=== PATIENT | female | born 1970 | race Caucasian/White ===

== ENCOUNTER 2019-07-19 16:01 | Emergency (ER) | payer OTHER ==
[~2019-07-19] VITALS: Ht 170.2 cm; Wt 79.0 kg
[2019-07-19] MEDS ORDERED: LISI5TAB7 PO (16:07)
[2019-07-19] MEDS ORDERED: ALBU18HF INH (16:08)
[2019-07-19] MEDS ORDERED: ESCI5TAB7 PO (16:08)
[2019-07-19] MEDS ORDERED: methylPREDNISolone SOD SUCC 125 MG/2 ML IV ONE (16:30)
[2019-07-19] MEDS ORDERED: SODIUM CHLORIDE 0.9% 1,000ML IVBOLUS ONE (16:30)
[2019-07-19] MEDS ORDERED: SODIUM CHLORIDE FLUSH 10ML SYR IVF ONE (16:30)
--- NOTE | 2019-07-19 16:36 | NUR ---
THIS IS A 49 YO FEMALE COMING IN FOR SHORTNESS OF BREATH, COUGH, FEVERS AT HOME X2 DAYS. PATIENT STATES SHE HAD FEVER AT HOME AT 89F, MEDICATED WITH 650MG TYLENOL, TEMP 99.1 HERE. HX OF ASTHMA MEDICATED WITH HOME NEBULIZER MULTIPLE TIMES WITH NO RELIEF. LABORED BREATHING NOTICED, TACHYPNIC AT 26 BREATHS A MINUTE, LUNG SOUNDS HAVE INSPIRATORY AND EXPIRATORY WHEEZES THROUGHOUT. PATIENT IS DIAPHORETIC. 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 LOLY RAI TO ROOM TO COMPLETE SWABS. PIV PLACED, LABS DRAWN, IVF STARTED. ALL MONITORING IN PLACE, SINUS TACHYCARDIA PRESENT. SPO2 AT 98% ON RA. CALL LIGHT IN REACH
[2019-07-19 16:46] LABS: BASOPHILS # (AUTO) 0.03 x10^3/uL (0-0.1); BASOPHILS % (AUTO) 1 % (0-1); EOSINOPHILS # (AUTO) 0.21 x10^3/uL (0-0.4); EOSINOPHILS % (AUTO) 4 % (1-7); LYMPHOCYTES # (AUTO) 1.55 x10^3/uL (1-3.4); LYMPHOCYTES % (AUTO) 29 % (22-44); MD NO; MEAN CORPUSCULAR HEMOGLOBIN 32.6 pg (27.0-34.8); MEAN CORPUSCULAR HGB CONC 34.2 g/dL (32.4-35.8); MEAN CORPUSCULAR VOLUME 95.4 fL (80-100); MEAN PLATELET VOLUME 9.6 fL (7.4-10.4); MONOCYTES # (AUTO) 0.62 x10^3/uL (0.2-0.8); MONOCYTES % (AUTO) 12 % (2-9); NEUTROPHILS # (AUTO) 3.01 x10^3/uL (1.8-6.8); NEUTROPHILS % (AUTO) 56 % (42-75); PLATELET COUNT 150 x10^3/uL (130-400); RED BLOOD COUNT 4.67 x10^6/uL (3.82-5.3); RED CELL DISTRIBUTION WIDTH 12.3 % (9.6-15.2)
[2019-07-19 16:48] LABS: RAPID INFLUENZA A Negative (Negative); RAPID INFLUENZA B Negative (Negative)
--- NOTE | 2019-07-19 16:50 | NUR ---
XRAY PENDING. PATIENT UP IN LAUREN WEBER, NAD
[2019-07-19 16:57] LABS: ALBUMIN 3.8 g/dL (3.4-5.0); ANION GAP 8 mmol/L (5-15); CALCIUM 8.9 mg/dL (8.5-10.1); CHLORIDE 108 mmol/L (98-107); CREATININE 0.97 mg/dL (0.55-1.02)
[2019-07-19 17:20] VITALS: BP 134/76
--- NOTE | 2019-07-19 17:43 | NUR ---
Patient given discharge instructions and they have confirmed that they understand the instructions. Patient ambulatory with steady gait out through respiratory exit. Patient verbalized understanding to come back if SPO2 drops below 92%, febrile, and tachycardic. Patient verbalized understanding that COVID19 test results will come back in next 24-48 hours.
== END 2019-07-19 17:46 | disposition home or self-care (01) ==
LOC: ED 16:19
DX: J45.40 Moderate persistent asthma, uncomplicated (principal); Z20.828 Contact with and (suspected) exposure to other viral communicable diseases; J06.9 Acute upper respiratory infection, unspecified; I10 Essential (primary) hypertension
CPT/HCPCS: 36415; 71045; 80048; 82040; 83605; 84145; 85025; 85379; 86140; 87040; 87400; 93005; 99285; J7030

== ENCOUNTER → 2019-11-20 | Outpatient (CLI) | payer OTHER ==
[~2019-11-20] MED LIST: ALBU18HF INH; ESCI5TAB7 PO; LISI5TAB7 PO
== END | disposition home or self-care (01) ==
LOC: CFH 14:15
PROVIDERS: ATTEND Family Medicine
DX: Z12.31 Encounter for screening mammogram for malignant neoplasm of breast (principal); N64.89 Other specified disorders of breast
CPT/HCPCS: 77067

== ENCOUNTER → 2020-03-02 | Outpatient (CLI) | payer OTHER ==
[2020-03-02 07:37] LABS: CHOLESTEROL, TOTAL 282 mg/dL (140-239); TRIGLYCERIDES 705 mg/dL (50-200)
[2020-03-02 07:39] LABS: CHOL/HDL RATIO 6.6; HDL CHOL % 15 % (28-40); HDL CHOLESTEROL (DIRECT) 43 mg/dL (40-60)
== END | disposition home or self-care (01) ==
LOC: LAB 07:11
PROVIDERS: ATTEND Family Medicine
DX: E78.1 Pure hyperglyceridemia (principal); R73.09 Other abnormal glucose
CPT/HCPCS: 36415; 80061; 83036

== ENCOUNTER → 2020-03-19 | Outpatient (CLI) | payer OTHER ==
[2020-03-19 07:30] LABS: BASOPHILS % (AUTO) 1 % (0-1); EOSINOPHILS % (AUTO) 3 % (1-7); LYMPHOCYTES % (AUTO) 39 % (22-44); MEAN CORPUSCULAR HEMOGLOBIN 32.7 pg (27.0-34.8); MEAN CORPUSCULAR HGB CONC 34.6 g/dL (32.4-35.8); MEAN PLATELET VOLUME 9.6 fL (7.4-10.4); MONOCYTES % (AUTO) 7 % (2-9); NEUTROPHILS % (AUTO) 49 % (42-75); PLATELET COUNT 169 x10^3/uL (130-400); RED BLOOD COUNT 4.35 x10^6/uL (3.82-5.3); RED CELL DISTRIBUTION WIDTH 12.1 % (9.6-15.2)
[2020-03-19 07:33] LABS: MD NO
[2020-03-19 07:40] LABS: ALBUMIN 3.9 g/dL (3.4-5.0); ANION GAP 5 mmol/L (5-15); CALCIUM 9.1 mg/dL (8.5-10.1); CHLORIDE 107 mmol/L (98-107)
[2020-03-19 07:53] LABS: ALANINE AMINOTRANSFERASE 29 U/L (12-78); ALKALINE PHOSPHATASE 88 U/L (45-117); BILIRUBIN,TOTAL 0.5 mg/dL (0.2-1.0); CREATININE 0.96 mg/dL (0.55-1.02); TOTAL PROTEIN 7.8 g/dL (6.4-8.2)
== END | disposition home or self-care (01) ==
LOC: LAB 07:03
PROVIDERS: ATTEND Family Medicine
DX: Z00.00 Encounter for general adult medical examination without abnormal findings (principal); E55.9 Vitamin D deficiency, unspecified; E78.2 Mixed hyperlipidemia
CPT/HCPCS: 36415; 80053; 80061; 82172; 82306; 83695; 84443; 85025

== ENCOUNTER 2021-01-11 20:46 | Emergency (ER) | payer OTHER ==
[~2021-01-11] VITALS: Ht 170.2 cm; Wt 82.0 kg
[2021-01-11 20:48] VITALS: BP 157/76
[2021-01-11] MEDS ORDERED: DEXAMETHASONE 4 MG/ML, 1ML ONE (20:58)
[2021-01-11] MEDS ORDERED: FAMOTIDINE 20 MG/2 ML ONE (20:58)
[2021-01-11] MEDS ORDERED: LORATADINE 10 MG TABLET PO ONE (21:00)
[2021-01-11] MEDS ORDERED: FAMOTIDINE 20 MG/2 ML IVPush ONE (21:00)
[2021-01-11] MEDS ORDERED: DEXAMETHASONE 4 MG/ML, 1ML IVPush ONE (21:00)
--- NOTE | 2021-01-11 21:57 | NUR ---
Patient/Caregiver given discharge instructions and they have confirmed that they understand the instructions. Patient ambulatory with steady gait. NAD, all questions answered appropriately, denies additional needs at this time. No personal belongings left in room after discharge.
== END 2021-01-11 21:31 | disposition home or self-care (01) ==
LOC: ED 21:15
DX: T78.40XA Allergy, unspecified, initial encounter (principal); I10 Essential (primary) hypertension; J45.909 Unspecified asthma, uncomplicated; X58.XXXA Exposure to other specified factors, initial encounter
CPT/HCPCS: 96374; 96375; 99284; J1100